=== PATIENT | female | born 1995 | race Caucasian/White ===

== ENCOUNTER 2023-12-04 12:34 | Outpatient (CLI) | payer OTHER, SELFPAY ==
--- NOTE | ~2023-12-04 | MR_ITS ---
EXAMINATION: MR sacroiliac jts wo/w con DATE: 12/04/2023 13:39 INDICATION: Dorsalgia TECHNIQUE: Magnetic resonance imaging (MRI) of the sacrum and joints was performed without and with P D mL Multihance intravenous contrast. Sequences included sagittal PD-weighted FS FSE, coronal obliqu e T2-weighted FS FSE, coronal oblique T1-weighted FSE, oblique axial T2-weighted FS FSE, oblique axia l T1-weighted FSE an oblique axial T1-weighted FS FSE. Postcontrast and oblique axial, oblique vigil l and sagittal T1-weighted FS FSE sequences were also obtained. COMPARISON: None FINDINGS: L5 is sacralized. Sacrum is asymmetric with mild dextrocurvature. Marrow signal is normal throughout with no fracture or pathologic marrow replacing process. Bilateral sacroiliac joints are normal. No i ncreased fluid signal, enhancement or erosions to suggest inflammatory sacroiliitis. Bilateral hip lit int spaces also appear unremarkable with no hip joint effusions. 2.5 cm left adnexal cyst. Postoperat rajendra changes with some susceptibility artifact along the anterior lower uterine segment as well as ext ending transversely across anterior pelvic wall consistent with prior section. Visualized pe lvis is otherwise unremarkable with no pathologically enlarged lymphadenopathy. IMPRESSION: 1. Likely developmental asymmetry and mild dextrocurvature of the sacrum. Bilateral sacralized joints are unremarkable with no evident sacral ileitis or acute osseous abnormality. The joints Reviewed, dictated and finalized at location A. IMPRESSION: 1. Likely developmental asymmetry and mild dextrocurvature of the sacrum. Bilat eral sacralized joints are unremarkable with no evident sacral ileitis or acute osseous abnormality. The joints
== END 2023-12-04 12:35 | disposition home or self-care (01) ==
PROVIDERS: PCP Internal Medicine; Visit Provider Internal Medicine
DX: R76.8 Other specified abnormal immunological findings in serum (principal); Z71.89 Other specified counseling; Z79.899 Other long term (current) drug therapy
CPT/HCPCS: 72197; A9577